=== PATIENT | female | born 1995 | race Caucasian/White ===

== ENCOUNTER 2022-10-21 11:10 | Outpatient (RCR) | payer OTHER ==
[~2022-10-21 11:10] MED LIST: ATEN50TA PO; BIRTH CONTROL; CYCL-97 PO; NAPR550T PO
== END 2022-11-17 | disposition home or self-care (01) ==
LOC: ONC 11:10
PROVIDERS: ATTEND Internal Medicine Hematology & Oncology
DX: R76.0 Raised antibody titer (principal)
CPT/HCPCS: 99204

== ENCOUNTER 2023-03-25 06:28 | Inpatient (IN) | payer OTHER ==
[~2023-03-25] VITALS: Ht 171 cm; Wt 108.3 kg
[2023-03-25] VITALS (69 sets, daily range): BP systolic 98–129; BP diastolic 56–86
[2023-03-25] MEDS ORDERED: MINERAL OIL 30 ML UDC TOP PRN (07:30)
[2023-03-25] MEDS ORDERED: NS IV 1000 ML 1,000 ML IV SCH (08:15)
[2023-03-25] MEDS ORDERED: OXYTOCIN PRE-MIX DRIP 500 ML IV SCH (08:30)
[2023-03-25] MEDS: D5 LR IV SOLUTION 1,000 ML IV SCH ×2 (08:31→16:09)
[2023-03-25 08:42] LABS: BASOPHILS # (AUTO) 0.1 10^3/uL (0.0-0.1); BASOPHILS % (AUTO) 1 % (0-10); EOSINOPHILS # (AUTO) 0.1 10^3/uL (0.0-0.3); EOSINOPHILS % (AUTO) 1 % (0-10); HEMATOCRIT 37 % (35-52); HEMOGLOBIN 11.6 g/dL (11.5-16.0); LYMPHOCYTES # (AUTO) 2.4 10^3/uL (1.0-4.0); LYMPHOCYTES % (AUTO) 20 % (12-44); MEAN CORPUSCULAR HEMOGLOBIN 27 pg (25-34); MEAN CORPUSCULAR HGB CONC 32 g/dL (32-36); MEAN CORPUSCULAR VOLUME 84 fL (80-99); MEAN PLATELET VOLUME 11.6 fL (9.0-12.2); MONOCYTES # (AUTO) 0.7 10^3/uL (0.0-1.0); MONOCYTES % (AUTO) 6 % (0-12); NEUTROPHILS # (AUTO) 8.6 10^3/uL (1.8-7.8); NEUTROPHILS % (AUTO) 71 % (42-75); PLATELET COUNT 211 10^3/uL (130-400); WHITE BLOOD COUNT 12.2 10^3/uL (4.3-11.0)
--- NOTE | 2023-03-25 12:57 | History & Physical-OB ---
OB - Chief Complaint & HPI Date/Time Date of Admission: Date of Admission: Mar 25, 2023 at 06:28 Date seen by a Provider: Mar 25, 2023 Time Seen by a Provider: 07:30 Chief Complaint/History OB-Reason for Admission/Chief: Induction of Labor Hx : 3 Hx Para: 2 Expected Date of Delivery: Apr 08, 2023 Gestational Age in Weeks: 38 Gestational Age in Days: 0 Indication for induction: medical complication (GDM) History of Labs A+, Ab neg, Rub Imm HIV/RPR/HepB/C NR Abnormal 1 hr and 3 hr GTT GBS Neg Allergies and Home Medications Allergies Coded Allergies: Penicillins (Verified Allergy, Unknown, 03/25/23) Patient Home Medication List Home Medication List Reviewed: Yes Atenolol (Tenormin 50 Mg) 50 Mg Tablet, 1 EACH PO DAILY, (Reported) Entered as Reported by: COLLIN SWEET on 07/01/121813 Cyclobenzaprine Hcl (Flexeril) 10 Mg Tablet, 1 TAB PO TID PRN Prescribed by: ALLIE ROMAN on 07/01/121857 Naproxen Sodium (Anaprox Ds) 550 Mg Tablet, 550 MG PO BID PRN Prescribed by: ALLIE ROMAN on 07/01/121857 [ Control] , DAILY, (Reported) Entered as Reported by: COLLIN SWEET on 07/01/121813 OB - History Hx of Present Care: Yes Ultrasounds: Normal mid trimester US Obstetrical Complications: Gestational Diabetes Obstetrical History Hx : 3 Hx # Term Pregnancies: 2 Number of Living Children: 2 Delivery History Hx Blood Disorders: No Patient Past Medical History None Social History/Family History Alcohol Use: Denies Use Recreational Drug Use: No Smoking Cessation: Never smoker Immunizations Influenza Vaccine Up-to-Date: No; Not Current Tetanus Booster (TDap): Less than 5yrs Rubella: immune RPR/VDRL: Negative GBS Status: Negative HBsAG: Negative OB - Admission Exam Physical Exam Vitals: Vital Signs 03/25/23 03/25/23 11:45 12:15 Temp 36.3 Pulse 84 Resp 18 B/P (MAP) 114/73 (87) O2 Delivery Room Air HEENT: NCAT Heart: Rhythm Normal Lungs: Clear Abdomen: Gravid Cervical Dilatation: 2cm Effacement: 50% Station: -3 Membranes: Intact Heart Rate: 150's Accelerations: Accelerations Present Decelerations: No Decelerations Short Term Variability: Present Field Nurse Case Manager Variability: Average (6-25) Valle Scoring Tool (Modified) Dilation (cm): 1-2cm (1) Effacement (%): 31-51% (1) Descent/Station: -3 (0) Cervix Consistency: Medium(1) Cervix Position: Middle/Mid-Position (1) Add 1 point for: Each previous vaginal delivery (1) Labs Laboratory Tests Test 03/25/23 07:50 03/25/23 10:03 03/25/23 11:57 Range/Units White Blood Count 12.2 H 4.3-11.0 10^3/uL Red Blood Count 4.35 3.80-5.11 10^6/uL Hemoglobin 11.6 11.5-16.0 g/dL Hematocrit 37 35-52 % Mean Corpuscular Volume 84 80-99 fL Mean Corpuscular Hemoglobin 27 25-34 pg Mean Corpuscular Hemoglobin Concent 32 32-36 g/dL Red Cell Distribution Width 14.2 10.0-14.5 % Platelet Count 211 130-400 10^3/uL Mean Platelet Volume 11.6 9.0-12.2 fL Immature Granulocyte % (Auto) 2 % Neutrophils (%) (Auto) 71 42-75 % Lymphocytes (%) (Auto) 20 12-44 % Monocytes (%) (Auto) 6 0-12 % Eosinophils (%) (Auto) 1 0-10 % Basophils (%) (Auto) 1 0-10 % Neutrophils # (Auto) 8.6 H 1.8-7.8 10^3/uL Lymphocytes # (Auto) 2.4 1.0-4.0 10^3/uL Monocytes # (Auto) 0.7 0.0-1.0 10^3/uL Eosinophils # (Auto) 0.1 0.0-0.3 10^3/uL Basophils # (Auto) 0.1 0.0-0.1 10^3/uL Immature Granulocyte # (Auto) 0.2 H 0.0-0.1 10^3/uL Syphilis Total Antibody Negative Negative Glucometer 99 87 70-110 MG/DL OB - Assessment/Plan/Diagnosis Assessment Assessment: induction of labor Admission Dx Third Trimester 38 week gestation GDM on Metformin Obesity in Admission Status: Inpatient Order (span 2 midnights) Reason for Inpatient Admission: Labor and Post care Plan Other Plan 28 yo @ 38 wga here for medical IOL for GDM, medication controlled Plan - GBS Neg - AROM, unable to AROM this AM due to station, will start pitocin protocol - Expect vaginal delivery - Ok for epidural at patient's desire - Check blood sugars every 2 hrs until active labor TAYO FOY MD Mar 25, 2023 12:57
[2023-03-25] MEDS ORDERED: CATHETER FLUSH 10 ML SYR IV SCH ×2 (14:00)
[2023-03-25] MEDS ORDERED: fentaNYL 2 mcg/ml BUPIVA 0.125 100 ML ONE (15:39)
[2023-03-25] MEDS ORDERED: fentaNYL INJ 100 MCG/2 ML AMP ONE (16:16)
[2023-03-25] MEDS ORDERED: BUPIVACAINE 0.25% 10 ML (SENSORCAINE) VIAL ONE (16:17)
[2023-03-25] MEDS ORDERED: LACTATED RINGERS 1,000 ML IV ONE (17:00)
[2023-03-25] MEDS ORDERED: fentaNYL 2 mcg/ml BUPIVA 0.125 100 ML EPI SCH (17:00)
[2023-03-25] MEDS ORDERED: CATHETER FLUSH 10 ML SYR IV PRN (17:00)
[2023-03-25] MEDS ORDERED: NALOXONE 0.4 MG/ML 1 ML (NARCAN) VIAL IV PRN (17:00)
[2023-03-25] MEDS ORDERED: ONDANSETRON 4 MG/2 ML (SDV) Z0FRAN IV PRN (17:00)
[2023-03-25] MEDS ORDERED: diphenhydrAMINE 50 MG/ML INJ (BENADRYL) IV PRN (17:00)
--- NOTE | 2023-03-25 18:12 | Labor Progress Note ---
Labor Progress Note Labor Progress Note Date Seen by Provider: Mar 25, 2023 Time Seen by Provider: 17:15 Subjective: Pt denies complaints. Epidural in place, pain well controlled. Objective: 2 AROM 1715 Clear Assessment/Plan: Whitney Aldridge is a (28 /Para 3 / 2,Gestational Age (wks)38.0 here for medical IOL for GDM CEFM/TOCO Continue pitocin protocol Anesthesia: Epidural in place Anticipate vaginal delivery. GBS neg Continue BS every 2 hrs AROM 1715 Clear Vitals - Labs Vital Signs - I&O Vital Signs Date Time Temp Pulse Resp B/P (MAP) Pulse Ox O2 Delivery O2 Flow Rate FiO2 03/25/23 16:45 36.5 85 18 113/72 (86) 98 Room Air 03/25/23 16:40 80 18 119/76 (90) 98 Room Air 03/25/23 16:35 89 18 120/79 (93) 97 Room Air 03/25/23 16:30 84 18 121/80 (94) 97 Room Air 03/25/23 16:25 81 18 124/78 (93) 98 Room Air 03/25/23 16:20 82 18 122/86 (98) 98 Room Air 03/25/23 16:15 75 18 112/65 (81) Room Air 03/25/23 16:00 78 18 118/72 (87) Room Air 03/25/23 15:45 36.4 78 18 121/75 (90) Room Air 03/25/23 15:30 78 18 123/78 (93) Room Air 03/25/23 15:15 84 18 122/75 (91) Room Air 03/25/23 15:00 85 18 121/73 (89) Room Air 03/25/23 14:45 77 18 121/74 (90) Room Air 03/25/23 14:30 81 18 118/64 (82) Room Air 03/25/23 14:00 75 18 116/71 (86) Room Air 03/25/23 13:45 36.1 74 18 116/68 (84) Room Air 03/25/23 13:30 78 18 113/73 (86) Room Air 03/25/23 13:15 93 18 119/77 (91) Room Air 03/25/23 13:00 74 18 105/59 (74) Room Air 03/25/23 12:45 36.4 79 18 106/57 (73) Room Air 03/25/23 12:30 78 18 103/57 (72) Room Air 03/25/23 12:15 84 18 114/73 (87) Room Air 03/25/23 12:00 81 18 121/78 (92) Room Air 03/25/23 11:45 36.3 72 18 129/73 (91) Room Air 03/25/23 11:30 76 18 116/76 (89) Room Air 03/25/23 11:15 77 18 114/74 (87) Room Air 03/25/23 11:00 71 18 113/73 (86) Room Air 03/25/23 10:45 75 18 102/56 (71) Room Air 03/25/23 10:30 86 18 103/66 (78) Room Air 03/25/23 10:15 86 18 99/63 (75) Room Air 03/25/23 10:00 74 18 114/74 (87) Room Air 03/25/23 09:45 78 18 119/76 (90) Room Air 03/25/23 09:30 82 18 111/71 (84) Room Air 03/25/23 09:15 85 18 117/73 (88) Room Air 03/25/23 09:00 87 18 113/73 (86) Room Air 03/25/23 08:45 36.5 86 18 115/72 (86) Room Air 03/25/23 07:30 36.2 86 18 98 Room Air 03/25/23 07:30 36.2 86 18 118/68 (85) 98 Room Air Labs Laboratory Tests 03/25/23 07:50: White Blood Count 12.2H, Red Blood Count 4.35, Hemoglobin 11.6, Hematocrit 37, Mean Corpuscular Volume 84, Mean Corpuscular Hemoglobin 27, Mean Corpuscular Hemoglobin Concent 32, Red Cell Distribution Width 14.2, Platelet Count 211, Mean Platelet Volume 11.6, Immature Granulocyte % (Auto) 2, Neutrophils (%) (Auto) 71, Lymphocytes (%) (Auto) 20, Monocytes (%) (Auto) 6, Eosinophils (%) (Auto) 1, Basophils (%) (Auto) 1, Neutrophils # (Auto) 8.6H, Lymphocytes # (Auto) 2.4, Monocytes # (Auto) 0.7, Eosinophils # (Auto) 0.1, Basophils # (Auto) 0.1, Immature Granulocyte # (Auto) 0.2H, Syphilis Total Antibody Negative 03/25/23 10:03: Glucometer 99 03/25/23 11:57: Glucometer 87 03/25/23 14:02: Glucometer 90 03/25/23 15:59: Glucometer 89 03/25/23 18:06: Glucometer 85 TAYO FOY MD Mar 25, 2023 18:12
--- NOTE | 2023-03-25 21:48 | Labor Progress Note ---
Labor Progress Note Labor Progress Note Date Seen by Provider: Mar 25, 2023 Time Seen by Provider: 21:45 Subjective: Patient having alot of back pain. Epidural bolus given with little improvement in pain control Objective: /1 Vertex per SVE Assessment/Plan: Whitney Aldridge is a (28 /Para 3 / 2,Gestational Age (wks)38.0 here for medical IOL for GDM. CEFM/TOCO Continue pitocin protocol Anesthesia: Epidural in place OP presentation, Position changes to try and spin baby into position, hands and knees currently Anticipate vaginal delivery. Vitals - Labs Vital Signs - I&O Vital Signs Date Time Temp Pulse Resp B/P (MAP) Pulse Ox O2 Delivery O2 Flow Rate FiO2 03/25/23 20:50 82 122/60 (80) 03/25/23 20:32 36.8 77 18 129/74 (92) Room Air 03/25/23 20:22 77 117/66 (83) 03/25/23 20:19 71 111/62 (78) 03/25/23 20:08 78 102/56 (71) 97 Room Air 03/25/23 20:04 78 107/62 (77) 97 Room Air 03/25/23 19:54 73 18 105/56 (72) 98 Room Air 03/25/23 19:30 71 20 121/74 (90) Room Air 03/25/23 19:15 66 20 120/75 (90) 97 Room Air 03/25/23 19:00 73 119/67 (84) 96 Room Air 03/25/23 18:55 36.6 03/25/23 18:45 62 18 98/56 (70) 98 Room Air 03/25/23 18:30 67 18 100/59 (73) 96 Room Air 03/25/23 18:15 68 18 104/57 (73) 97 Room Air 03/25/23 18:00 68 18 118/70 (86) 96 Room Air 03/25/23 17:45 72 18 113/72 (86) 96 Room Air 03/25/23 17:25 69 18 112/67 (82) 98 Room Air 03/25/23 17:20 68 18 114/66 (82) 98 Room Air 03/25/23 17:15 36.4 65 18 116/68 (84) 96 Room Air 03/25/23 17:10 70 18 109/68 (82) 96 Room Air 03/25/23 17:05 71 18 109/67 (81) 95 Room Air 03/25/23 17:00 72 18 111/64 (80) 96 Room Air 03/25/23 16:55 76 18 114/64 (81) 96 Room Air 03/25/23 16:50 76 18 114/69 (84) 96 Room Air 03/25/23 16:45 36.5 85 18 113/72 (86) 98 Room Air 03/25/23 16:40 80 18 119/76 (90) 98 Room Air 03/25/23 16:35 89 18 120/79 (93) 97 Room Air 03/25/23 16:30 84 18 121/80 (94) 97 Room Air 03/25/23 16:25 81 18 124/78 (93) 98 Room Air 03/25/23 16:20 82 18 122/86 (98) 98 Room Air 03/25/23 16:15 75 18 112/65 (81) Room Air 03/25/23 16:00 78 18 118/72 (87) Room Air 03/25/23 15:45 36.4 78 18 121/75 (90) Room Air 03/25/23 15:30 78 18 123/78 (93) Room Air 03/25/23 15:15 84 18 122/75 (91) Room Air 03/25/23 15:00 85 18 121/73 (89) Room Air 03/25/23 14:45 77 18 121/74 (90) Room Air 03/25/23 14:30 81 18 118/64 (82) Room Air 03/25/23 14:00 75 18 116/71 (86) Room Air 03/25/23 13:45 36.1 74 18 116/68 (84) Room Air 03/25/23 13:30 78 18 113/73 (86) Room Air 03/25/23 13:15 93 18 119/77 (91) Room Air 03/25/23 13:00 74 18 105/59 (74) Room Air 03/25/23 12:45 36.4 79 18 106/57 (73) Room Air 03/25/23 12:30 78 18 103/57 (72) Room Air 03/25/23 12:15 84 18 114/73 (87) Room Air 03/25/23 12:00 81 18 121/78 (92) Room Air 03/25/23 11:45 36.3 72 18 129/73 (91) Room Air 03/25/23 11:30 76 18 116/76 (89) Room Air 03/25/23 11:15 77 18 114/74 (87) Room Air 03/25/23 11:00 71 18 113/73 (86) Room Air 03/25/23 10:45 75 18 102/56 (71) Room Air 03/25/23 10:30 86 18 103/66 (78) Room Air 03/25/23 10:15 86 18 99/63 (75) Room Air 03/25/23 10:00 74 18 114/74 (87) Room Air 03/25/23 09:45 78 18 119/76 (90) Room Air 03/25/23 09:30 82 18 111/71 (84) Room Air 03/25/23 09:15 85 18 117/73 (88) Room Air 03/25/23 09:00 87 18 113/73 (86) Room Air 03/25/23 08:45 36.5 86 18 115/72 (86) Room Air 03/25/23 07:30 36.2 86 18 98 Room Air 03/25/23 07:30 36.2 86 18 118/68 (85) 98 Room Air Labs Laboratory Tests 03/25/23 07:50: White Blood Count 12.2H, Red Blood Count 4.35, Hemoglobin 11.6, Hematocrit 37, Mean Corpuscular Volume 84, Mean Corpuscular Hemoglobin 27, Mean Corpuscular Hemoglobin Concent 32, Red Cell Distribution Width 14.2, Platelet Count 211, Mean Platelet Volume 11.6, Immature Granulocyte % (Auto) 2, Neutrophils (%) (Auto) 71, Lymphocytes (%) (Auto) 20, Monocytes (%) (Auto) 6, Eosinophils (%) (Auto) 1, Basophils (%) (Auto) 1, Neutrophils # (Auto) 8.6H, Lymphocytes # (Auto) 2.4, Monocytes # (Auto) 0.7, Eosinophils # (Auto) 0.1, Basophils # (Auto) 0.1, Immature Granulocyte # (Auto) 0.2H, Syphilis Total Antibody Negative 03/25/23 10:03: Glucometer 99 7/6/23 11:57: Glucometer 87 03/25/23 14:02: Glucometer 90 03/25/23 15:59: Glucometer 89 03/25/23 18:06: Glucometer 85 03/25/23 20:16: Glucometer 90 TAYO FOY MD Mar 25, 2023 21:48
[2023-03-25] MEDS: OXYTOCIN PRE-MIX DRIP 500 ML IV SCH (22:11)
[2023-03-25] MEDS ORDERED: LIDOCAINE 1% INJ 10 ML VIAL ONE (22:12)
[2023-03-25] MEDS ORDERED: LIDOCAINE 1% INJ 10 ML VIAL INJ ONE (22:30)
--- NOTE | 2023-03-25 22:51 | OB Labor & Delivery Record ---
Vag Delivery Note Vag Delivery Note Date of Delivery: 03/25/23 Preoperative Diagnosis: Whitney Aldridge is a (28 /Para 3 / 2, Gestational Age (wks)38.0 wga here for medical IOL for GDM] Postoperative Diagnosis: Same Surgeon: TAYO FOY MD Viscosity Tester: None Anesthesia: Epidural Delivery Type: @ 2202 Findings: Viable male infant, apgars 8/9, weight 8#0, 3640 Lacerations: 1st degree laceration Intact placenta with 3 vessel cord. No nuchal cord, body cord or shoulder dystocia Estimated Blood Loss: 150 ml Complications: None Condition: Stable Description of Procedure: The patient is a 28 year old female who presented for IOL. She was admitted and informed consent was obtained. Her labor course was remarkable for pitocin induction. She progressed to complete dilatation and began to push. She was then set up for delivery. The infant's head was delivered atraumatically in the FOUZIA position with mother on Right lateral lay. The shoulders and remaind er of the 's body were then delivered without difficulty. Upon delivery, the was vigorous and placed on maternal chest and the mouth and nares were bulb suctioned. After a 3 min delay cord was doubly clamped and cut by FOB and the remained on maternal chest. An intact placenta with 3-vessel cord delivered via Carol and there was found to be minimal bleeding.~ Vigorous fundal massage was performed and the fundus was found to be firm. IV oxytocin was given. Examination of the vagina and perineum revealed a 1st degree laceration repaired in the usual fashion with 3-0 vicryl rapide suture. Following the repair, sponge, instrument and needle counts were correct. Mom and baby were both in stable condition in the labor suite. Vitals - Labs Vital Signs - I&O Vital Signs Date Time Temp Pulse Resp B/P (MAP) Pulse Ox O2 Delivery O2 Flow Rate FiO2 03/25/23 20:50 82 122/60 (80) 03/25/23 20:32 36.8 77 18 129/74 (92) Room Air 03/25/23 20:22 77 117/66 (83) 03/25/23 20:19 71 111/62 (78) 03/25/23 20:08 78 102/56 (71) 97 Room Air 03/25/23 20:04 78 107/62 (77) 97 Room Air 03/25/23 19:54 73 18 105/56 (72) 98 Room Air 03/25/23 19:30 71 20 121/74 (90) Room Air 03/25/23 19:15 66 20 120/75 (90) 97 Room Air 03/25/23 19:00 73 119/67 (84) 96 Room Air 03/25/23 18:55 36.6 03/25/23 18:45 62 18 98/56 (70) 98 Room Air 03/25/23 18:30 67 18 100/59 (73) 96 Room Air 03/25/23 18:15 68 18 104/57 (73) 97 Room Air 03/25/23 18:00 68 18 118/70 (86) 96 Room Air 03/25/23 17:45 72 18 113/72 (86) 96 Room Air 03/25/23 17:25 69 18 112/67 (82) 98 Room Air 03/25/23 17:20 68 18 114/66 (82) 98 Room Air 03/25/23 17:15 36.4 65 18 116/68 (84) 96 Room Air 03/25/23 17:10 70 18 109/68 (82) 96 Room Air 03/25/23 17:05 71 18 109/67 (81) 95 Room Air 03/25/23 17:00 72 18 111/64 (80) 96 Room Air 03/25/23 16:55 76 18 114/64 (81) 96 Room Air 03/25/23 16:50 76 18 114/69 (84) 96 Room Air 03/25/23 16:45 36.5 85 18 113/72 (86) 98 Room Air 03/25/23 16:40 80 18 119/76 (90) 98 Room Air 03/25/23 16:35 89 18 120/79 (93) 97 Room Air 03/25/23 16:30 84 18 121/80 (94) 97 Room Air 03/25/23 16:25 81 18 124/78 (93) 98 Room Air 03/25/23 16:20 82 18 122/86 (98) 98 Room Air 03/25/23 16:15 75 18 112/65 (81) Room Air 03/25/23 16:00 78 18 118/72 (87) Room Air 03/25/23 15:45 36.4 78 18 121/75 (90) Room Air 03/25/23 15:30 78 18 123/78 (93) Room Air 03/25/23 15:15 84 18 122/75 (91) Room Air 03/25/23 15:00 85 18 121/73 (89) Room Air 03/25/23 14:45 77 18 121/74 (90) Room Air 03/25/23 14:30 81 18 118/64 (82) Room Air 03/25/23 14:00 75 18 116/71 (86) Room Air 03/25/23 13:45 36.1 74 18 116/68 (84) Room Air 03/25/23 13:30 78 18 113/73 (86) Room Air 03/25/23 13:15 93 18 119/77 (91) Room Air 03/25/23 13:00 74 18 105/59 (74) Room Air 03/25/23 12:45 36.4 79 18 106/57 (73) Room Air 03/25/23 12:30 78 18 103/57 (72) Room Air 03/25/23 12:15 84 18 114/73 (87) Room Air 03/25/23 12:00 81 18 121/78 (92) Room Air 03/25/23 11:45 36.3 72 18 129/73 (91) Room Air 03/25/23 11:30 76 18 116/76 (89) Room Air 03/25/23 11:15 77 18 114/74 (87) Room Air 03/25/23 11:00 71 18 113/73 (86) Room Air 03/25/23 10:45 75 18 102/56 (71) Room Air 03/25/23 10:30 86 18 103/66 (78) Room Air 03/25/23 10:15 86 18 99/63 (75) Room Air 03/25/23 10:00 74 18 114/74 (87) Room Air 03/25/23 09:45 78 18 119/76 (90) Room Air 03/25/23 09:30 82 18 111/71 (84) Room Air 03/25/23 09:15 85 18 117/73 (88) Room Air 03/25/23 09:00 87 18 113/73 (86) Room Air 03/25/23 08:45 36.5 86 18 115/72 (86) Room Air 03/25/23 07:30 36.2 86 18 98 Room Air 03/25/23 07:30 36.2 86 18 118/68 (85) 98 Room Air Labs Laboratory Tests 03/25/23 07:50: White Blood Count 12.2H, Red Blood Count 4.35, Hemoglobin 11.6, Hematocrit 37, Mean Corpuscular Volume 84, Mean Corpuscular Hemoglobin 27, Mean Corpuscular Hemoglobin Concent 32, Red Cell Distribution Width 14.2, Platelet Count 211, Mean Platelet Volume 11.6, Immature Granulocyte % (Auto) 2, Neutrophils (%) (Auto) 71, Lymphocytes (%) (Auto) 20, Monocytes (%) (Auto) 6, Eosinophils (%) (Auto) 1, Basophils (%) (Auto) 1, Neutrophils # (Auto) 8.6H, Lymphocytes # (Auto) 2.4, Monocytes # (Auto) 0.7, Eosinophils # (Auto) 0.1, Basophils # (Auto) 0.1, Immature Granulocyte # (Auto) 0.2H, Syphilis Total Antibody Negative 03/25/23 10:03: Glucometer 99 03/25/23 11:57: Glucometer 87 03/25/23 14:02: Glucometer 90 03/25/23 15:59: Glucometer 89 03/25/23 18:06: Glucometer 85 03/25/23 20:16: Glucometer 90 TAYO FOY MD Mar 25, 2023 22:51
[2023-03-25] MEDS ORDERED: BENZOCAINE/MENTHOL (DERMOPLAST) 56 ML CAN TP PRN (23:00)
[2023-03-25] MEDS ORDERED: WITCH HAZEL(TUCKS) 40 EA JAR TOP PRN (23:00)
[2023-03-25] MEDS: IBUPROFEN 600 MG (MOTRIN) TAB PO SCH (23:59)
[2023-03-26] MEDS: OXYTOCIN PRE-MIX DRIP 500 ML IV SCH (00:52)
[2023-03-26 02:09] VITALS: BP 107/56
[2023-03-26] MEDS: IBUPROFEN 600 MG (MOTRIN) TAB PO SCH ×3 (05:36→22:38)
[2023-03-26] MEDS: ACETAMINOPHEN 500 MG TAB (TYLENOL) PO SCH ×4 (05:36→18:26)
[2023-03-26 05:39] VITALS: BP 113/62
[2023-03-26 05:46] LABS: BASOPHILS # (AUTO) 0.1 10^3/uL (0.0-0.1); BASOPHILS % (AUTO) 0 % (0-10); EOSINOPHILS # (AUTO) 0.1 10^3/uL (0.0-0.3); EOSINOPHILS % (AUTO) 0 % (0-10); HEMATOCRIT 34 % (35-52); LYMPHOCYTES # (AUTO) 2.8 10^3/uL (1.0-4.0); LYMPHOCYTES % (AUTO) 16 % (12-44); MEAN CORPUSCULAR HEMOGLOBIN 27 pg (25-34); MEAN CORPUSCULAR HGB CONC 32 g/dL (32-36); MEAN CORPUSCULAR VOLUME 85 fL (80-99); MEAN PLATELET VOLUME 11.7 fL (9.0-12.2); MONOCYTES # (AUTO) 1.4 10^3/uL (0.0-1.0); MONOCYTES % (AUTO) 8 % (0-12); NEUTROPHILS % (AUTO) 75 % (42-75); PLATELET COUNT 203 10^3/uL (130-400); WHITE BLOOD COUNT 17.5 10^3/uL (4.3-11.0)
[2023-03-26] MEDS ORDERED: CATHETER FLUSH 10 ML SYR IV SCH (06:00)
[2023-03-26 09:45] VITALS: BP 111/69
[2023-03-26] MEDS: DOCUSATE SODIUM 100 MG (COLACE) CAP PO SCH ×2 (09:50→22:38)
--- NOTE | 2023-03-26 10:00 | Anesthesia-Regional Post-Op ---
Regional Patient Condition Mental Status: Alert, Oriented x3 Circulation: Same as Pre-Op Headache: Absent Sensation: Full Recovery Motor Block: Absent Post Op Complications Complications None Follow Up Care/Instructions Patient Instructions None needed. Anesthesia/Patient Condition Patient is doing well, no complaints, stable vital signs, no apparent adverse anesthesia problems. No complications reported per nursing. LESA VERDUZCO CRNA Mar 26, 2023 10:00
--- NOTE | 2023-03-26 12:08 | Postpartum Progress Note ---
Note Note Day # 1 Subjective: Patient is without complaints. Ambulating, voiding. Tolerating a regular diet without nausea or vomiting. Normal lochia. Pain is well controlled with oral pain medications. Breast feeding. Objective: Physical Exam: General - Alert and oriented, no apparent distress Abdomen - Soft, appropriately tender to palpation, non-distended, fundus firm at umbilicus Extremities - no edema, negative Tripp's bilaterally Assessment: 28 yo G3 now P3 mother post- day # 1, status post spontaneous vaginal delivery. Recovering well, hemodynamically stable Asymptomatic anemia of acute blood loss Plan: Routine care. Encourage breast feeding, continue taking PNV Encourage ambulation. Ferrous sulfate supplementation. GDM: Stop Metformin, will recheck at her post visit Plan for discharge tomorrow with bushra Ying in 6 weeks Vitals - Labs Vital Signs - I&O Vital Signs Date Time Temp Pulse Resp B/P (MAP) Pulse Ox O2 Delivery O2 Flow Rate FiO2 03/26/23 09:45 36.4 71 18 111/69 (83) Room Air 03/26/23 05:39 36.4 73 18 113/62 (79) 97 Room Air 03/26/23 02:09 37.0 83 18 107/56 (73) 96 Room Air 03/25/23 23:49 85 120/70 (87) 03/25/23 23:34 88 22 115/74 (88) 03/25/23 23:19 75 109/71 (84) 03/25/23 23:04 83 109/68 (82) 03/25/23 22:49 36.2 83 101/68 (79) 03/25/23 22:34 86 106/72 (83) 03/25/23 22:19 92 113/67 (82) 03/25/23 21:50 103 18 118/78 (91) 99 Room Air 03/25/23 21:05 71 104/59 (74) 03/25/23 20:50 82 122/60 (80) 03/25/23 20:32 36.8 77 18 129/74 (92) Room Air 03/25/23 20:22 77 117/66 (83) 03/25/23 20:19 71 111/62 (78) 03/25/23 20:08 78 102/56 (71) 97 Room Air 03/25/23 20:04 78 107/62 (77) 97 Room Air 03/25/23 19:54 73 18 105/56 (72) 98 Room Air 03/25/23 19:30 71 20 121/74 (90) Room Air 03/25/23 19:15 66 20 120/75 (90) 97 Room Air 03/25/23 19:00 73 119/67 (84) 96 Room Air 03/25/23 18:55 36.6 03/25/23 18:45 62 18 98/56 (70) 98 Room Air 03/25/23 18:30 67 18 100/59 (73) 96 Room Air 03/25/23 18:15 68 18 104/57 (73) 97 Room Air 03/25/23 18:00 68 18 118/70 (86) 96 Room Air 03/25/23 17:45 72 18 113/72 (86) 96 Room Air 03/25/23 17:25 69 18 112/67 (82) 98 Room Air 03/25/23 17:20 68 18 114/66 (82) 98 Room Air 03/25/23 17:15 36.4 65 18 116/68 (84) 96 Room Air 03/25/23 17:10 70 18 109/68 (82) 96 Room Air 03/25/23 17:05 71 18 109/67 (81) 95 Room Air 03/25/23 17:00 72 18 111/64 (80) 96 Room Air 03/25/23 16:55 76 18 114/64 (81) 96 Room Air 03/25/23 16:50 76 18 114/69 (84) 96 Room Air 03/25/23 16:45 36.5 85 18 113/72 (86) 98 Room Air 03/25/23 16:40 80 18 119/76 (90) 98 Room Air 03/25/23 16:35 89 18 120/79 (93) 97 Room Air 03/25/23 16:30 84 18 121/80 (94) 97 Room Air 03/25/23 16:25 81 18 124/78 (93) 98 Room Air 03/25/23 16:20 82 18 122/86 (98) 98 Room Air 03/25/23 16:15 75 18 112/65 (81) Room Air 03/25/23 16:00 78 18 118/72 (87) Room Air 03/25/23 15:45 36.4 78 18 121/75 (90) Room Air 03/25/23 15:30 78 18 123/78 (93) Room Air 03/25/23 15:15 84 18 122/75 (91) Room Air 03/25/23 15:00 85 18 121/73 (89) Room Air 03/25/23 14:45 77 18 121/74 (90) Room Air 03/25/23 14:30 81 18 118/64 (82) Room Air 03/25/23 14:00 75 18 116/71 (86) Room Air 03/25/23 13:45 36.1 74 18 116/68 (84) Room Air 03/25/23 13:30 78 18 113/73 (86) Room Air 03/25/23 13:15 93 18 119/77 (91) Room Air 03/25/23 13:00 74 18 105/59 (74) Room Air 03/25/23 12:45 36.4 79 18 106/57 (73) Room Air 03/25/23 12:30 78 18 103/57 (72) Room Air 03/25/23 12:15 84 18 114/73 (87) Room Air I & O 03/26/23 07:00 Intake Total 2032 ml Balance 2032 ml Labs Laboratory Tests 03/25/23 14:02: Glucometer 90 03/25/23 15:59: Glucometer 89 03/25/23 18:06: Glucometer 85 03/25/23 20:16: Glucometer 90 03/25/23 23:38: Glucometer 139H 03/26/23 05:24: White Blood Count 17.5H, Red Blood Count 4.03, Hemoglobin 11.0L, Hematocrit 34L, Mean Corpuscular Volume 85, Mean Corpuscular Hemoglobin 27, Mean Corpuscular Hemoglobin Concent 32, Red Cell Distribution Width 14.3, Platelet Count 203, Mean Platelet Volume 11.7, Immature Granulocyte % (Auto) 1, Neutrophils (%) (Auto) 75, Lymphocytes (%) (Auto) 16, Monocytes (%) (Auto) 8, Eosinophils (%) (Auto) 0, Basophils (%) (Auto) 0, Neutrophils # (Auto) 13.0H, Lymphocytes # (Auto) 2.8, Monocytes # (Auto) 1.4H, Eosinophils # (Auto) 0.1, Basophils # (Auto) 0.1, Immature Granulocyte # (Auto) 0.2H, Glucose Level 95 TAYO YING MD Mar 26, 2023 12:08
[2023-03-26 15:45] VITALS: BP 125/84
[2023-03-26 20:00] VITALS: BP 118/77
[2023-03-27] MEDS: ACETAMINOPHEN 500 MG TAB (TYLENOL) PO SCH ×2 (02:15→09:49)
[2023-03-27 02:25] VITALS: BP 108/57
--- NOTE | 2023-03-27 07:44 | Discharge Inst-Women's Service ---
Discharge Inst-Women's Serv Depart Medication/Instructions New, Converted or Re-Newed RX: Other Instructions May take [id number] ibuprofen 2 or 3 200 mg tablets every 6 hours as needed for cramps or utilize naproxen every 12 hours if available for cramping Consults/Follow Up Additional Follow Up: Yes (Dr. Ying in 6 weeks) Activity Driving Instructions: No Driving for 1 Week Nothing Inside Vagina: No [place] (For 6 weeks) Diet Discharge Diet: Regular Diet Return to The Hospital For: As below Symptoms to Report to : Bleeding Excessive, Fever Over 101 Degrees F, Vaginal Discharge Foul For Any Problems or Questions: Contact Your Physician CATALINA ALMARAZ MD Mar 27, 2023 07:44
--- NOTE | 2023-03-27 07:48 | Discharge Summary ---
Diagnosis/Chief Complaint Date of Admission Mar 25, 2023 at 06:28 Date of Discharge March 27, 2023 Admission Diagnosis Admission Diagnosis 1. Intrauterine at term 38 weeks gestation 2.. Gestational diabetes Discharge Diagnosis 1. Intrauterine at term 38 weeks gestation 2.. Gestational diabetes Chief Complaint/HPI Chief Complaint/HPI 28-year-old 3 now term 3 L3 who presents to labor and delivery at 38 weeks gestation for induction of labor secondary to gestational diabetes. Patient was noted to be group B strep negative prenatally. She was on metformin in third trimester for controlling the gestational diabetes. Discharge Summary-OBS Procedures 1. Epidural per anesthesia 2. Spontaneous vaginal delivery 3. Repair of minor first-degree perineal laceration Discharge Physical Examination Allergies: Coded Allergies: Penicillins (Verified Allergy, Unknown, 03/25/23) Vitals & I&Os Vital Sign - Last 12Hours Date Time Temp Pulse Resp B/P (MAP) Pulse Ox O2 Delivery O2 Flow Rate FiO2 03/27/23 02:25 36.3 87 18 108/57 (74) 97 Room Air General Appearance: No Acute Distress Respiratory: Clear to Auscultation Cardiovascular: Regular Rate Abdominal: Soft (With uterus firm) Hospital Course Was the Problem List Reviewed?: Yes following admission patient underwent induction of labor with initiation of Pitocin. Ultimately she underwent artificial rupture of membranes. Epidural had been giving during the course of her care. Ultimately she went on to deliver March 25, 2023 at 2205 spontaneous vaginal. weighed 8 lbs. 0 oz. and had Apgars of 8 at 1 minute and 8 at 5 minutes. There was a minor first-degree perineal laceration. Following delivery she underwent routine care orders. She was noted to have glucose ranges anywhere from 89-139. The metformin was discontinued. Her hemoglobin in the morning of March 26 was 11.0 compared to admission of 11.6. Ultimately patient was ready for dismissal in the morning of March 27, 2023. She will follow-up with Dr. Ying in the clinic in 6 weeks. Discharge Instructions to patient/family Please see electronic discharge instructions given to patient. Discharge Medications Reviewed and agree with Discharge Medication list on patient's Discharge Instruction sheet CATALINA ALMARAZ MD Mar 27, 2023 07:48
[2023-03-27] MEDS: DOCUSATE SODIUM 100 MG (COLACE) CAP PO SCH (09:49)
[2023-03-27] MEDS: IBUPROFEN 600 MG (MOTRIN) TAB PO SCH (09:49)
[2023-03-27 09:53] VITALS: BP 127/80
== END 2023-03-27 10:30 | disposition home or self-care (01) | DRG 806 ==
LOC: LDRP 06:28
PROVIDERS: ADMIT Family Medicine; ATTEND Family Medicine
PROC: 10E0XZZ Delivery of Products of Conception, External Approach (ICD-10-PCS; principal; 2023-03-25)
PROC: 0HQ9XZZ Repair Perineum Skin, External Approach (ICD-10-PCS; 2023-03-25)
PROC: 3E033VJ Introduction of Other Hormone into Peripheral Vein, Percutaneous Approach (ICD-10-PCS; 2023-03-25)
PROC: 10907ZC Drainage of Amniotic Fluid, Therapeutic from Products of Conception, Via Natural or Artificial Opening (ICD-10-PCS; 2023-03-25)
DX: O24.425 Gestational diabetes mellitus in childbirth, controlled by oral hypoglycemic drugs (principal); D62 Acute posthemorrhagic anemia; Z37.0 Single live birth; Z3A.38 38 weeks gestation of pregnancy; Z79.84 Long term (current) use of oral hypoglycemic drugs; O99.214 Obesity complicating childbirth; O70.0 First degree perineal laceration during delivery; O90.81 Anemia of the puerperium; Z28.310 Unvaccinated for COVID-19
CPT/HCPCS: 36415; 82947; 85025; 86780; 86850; 86900; 86901